=== PATIENT | female | born 1940 | race Caucasian/White ===

== ENCOUNTER → 2019-11-16 | Outpatient (CLI) | payer MEDICARE, OTHER ==
--- NOTE | 2019-11-16 14:32 | Diagnostic Imaging Report ---
INDICATION: Screening for MRI. TIME OF EXAM: 01:34 p.m. FINDINGS: The heart size is normal. There is a dual-lead left subclavian cardiac pacemaker. Pacemaker tips are located in the region of the right atrium and right ventricle. No abandoned leads are identified. The lungs are clear. No effusion or pneumothorax is detected. IMPRESSION: No evidence of abandoned leads identified to preclude MRI. Dictated by: Dictated on workstation # [id number]
--- NOTE | 2019-11-16 15:19 | Diagnostic Imaging Report ---
PROCEDURE: MRI lumbar spine. TECHNIQUE: Multiplanar, multisequence MRI of the lumbar spine was performed without contrast. INDICATION: Back pain. COMPARISON: No prior studies are available for comparison. FINDINGS: Lordotic curvature is within normal limits. There is minimal retrolisthesis L2-L3, L3-L4 and L4-L5 levels. Vertebral body heights are maintained. No acute compression fracture is seen. There is significant degenerative disc disease at all levels of the lumbar spine with disc space narrowing, desiccation and endplate osteophyte formation. Conus appears unremarkable at approximately T12 level. T12-L1: Central canal is patent. Neural foramina are patent. L1-L2: Central canal is patent. Mild neural foraminal narrowing is seen bilaterally. L2-L3: There is a large left paracentral disc protrusion indenting the ventral thecal sac producing severe left lateral recess stenosis. There is also obliteration of the left neural foramen. Extruded disc material appears to be posterior to the L2 vertebral body. There is ligamentous thickening and facet changes producing significant trefoil stenosis of the canal as well. Mild right neural foraminal narrowing is seen. L3-L4: Hypertrophic facet changes and ligamentous thickening with broad-based disc/osteophyte complex results in significant trefoil stenosis to the central canal. There are severe bilateral lateral recess stenosis as well as significant bilateral neural foraminal stenosis. L4-L5: Broad-based disc/osteophyte complex, ligamentous thickening, and facet changes result in moderate central canal stenosis. There is severe bilateral lateral recess stenosis as well as significant bilateral neural foraminal stenosis. L5-S1: Central canal is patent. Significant bilateral neural foraminal stenosis is seen. Paraspinous tissues are unremarkable. IMPRESSION: 1. Severe multilevel lumbar spondylosis with multilevel central canal, lateral recess and neural foraminal stenosis described level by level above. 2. Extruded disc left paramidline L2-L3 level, as described resulting in severe left lateral recess and left neural foraminal stenosis. Dictated by: Dictated on workstation # [id number]
== END ==
LOC: RAD 13:06
PROVIDERS: ATTEND Physician Assistant
DX: M48.061 Spinal stenosis, lumbar region without neurogenic claudication (principal); M47.816 Spondylosis without myelopathy or radiculopathy, lumbar region; Z95.0 Presence of cardiac pacemaker
CPT/HCPCS: 71045; 72148